=== PATIENT | female | born 1960 | race Caucasian/White ===

== ENCOUNTER 2020-01-12 02:06 | Inpatient (IN) | payer MEDICARE, MEDICAID ==
[~2020-01-12] VITALS: Ht 170.2 cm; Wt 90.0 kg
[2020-01-12] MEDS ORDERED: ASPI-1265 PO (02:53)
[2020-01-12] MEDS ORDERED: GLIP5TAB13 PO (02:53)
[2020-01-12] MEDS ORDERED: CYAN50008 PO (02:53)
[2020-01-12] MEDS ORDERED: ASCO-349 PO (02:53)
[2020-01-12] MEDS ORDERED: ALBU8.5H8 IH (02:53)
[2020-01-12] MEDS ORDERED: METF-950 PO (02:53)
[2020-01-12] MEDS ORDERED: LISI-600 PO (02:53)
[2020-01-12] MEDS ORDERED: SULF1TAB48 PO (02:53)
[2020-01-12] MEDS ORDERED: ATOR20TA PO (02:53)
[2020-01-12] MEDS ORDERED: ONDA4TAB6 PO (02:53)
[2020-01-12] MEDS ORDERED: NAPR-56 PO (02:53)
[2020-01-12] MEDS ORDERED: GABA-530 PO (02:53)
[2020-01-12] MEDS ORDERED: MECL-184 PO (02:53)
[2020-01-12] MEDS ORDERED: ACET-1059 PO (02:53)
--- NOTE | 2020-01-12 03:11 | NUR ---
BLADDER SCAN SHOWED 375 ML PRE-VOID. PT ATTEMPTED TO URINATE, VOIDED APPROX 300 ML. URINE DARK YELLOW AND HAS SEDIMENT
[2020-01-12] MEDS ORDERED: mag hydrox/Alum hydrox/simeth 30ml oral suspension PO PRN (03:55)
[2020-01-12] MEDS ORDERED: magnesium 4gm in 100ml NS 100 ML IV PRN (03:55)
[2020-01-12] MEDS ORDERED: HYDROcodone/acetaminophen 5mg/325mg tablet PO PRN (03:55)
[2020-01-12] MEDS ORDERED: HYDROcodone/acetaminophen 10/325mg tab PO PRN (03:55)
[2020-01-12] MEDS ORDERED: potassium Cl 20 mEq SR tablet PO PRN ×2 (03:55)
[2020-01-12] MEDS ORDERED: MESSAGE TO PHARMACY PO ONE (03:55)
[2020-01-12] MEDS ORDERED: ipratropium/albuterol 3ml nebule NEB PRN (03:55)
[2020-01-12] MEDS ORDERED: glucagon, human recombinant 1mg kit SUBCUT PRN (03:55)
[2020-01-12] MEDS ORDERED: dextrose 50%-water 50ml dispensing syringe IV PRN ×2 (03:55)
[2020-01-12] MEDS ORDERED: potassium CL 10mEq/100ml bag 100 ML IV PRN ×2 (03:55)
[2020-01-12] MEDS ORDERED: dextrose ORAL solution 15 GM/59 ML bottle PO PRN ×2 (03:55)
[2020-01-12] MEDS ORDERED: magnesium 2GM in 50ml NS 50 ML IV PRN (03:55)
[2020-01-12] MEDS ORDERED: magnesium hydroxide 30ml (MOM) UD suspension PO PRN (03:55)
[2020-01-12] MEDS ORDERED: acetaminophen 325mg tablet PO PRN ×2 (03:55)
[2020-01-12] MEDS ORDERED: ondansetron/PF 4mg/2ml inj IV PRN (03:55)
--- NOTE | 2020-01-12 04:15 | NUR ---
PT GIVEN FOOD UPON REQUEST
[2020-01-12] MEDS: normal saline 1000ml 1,000 ML IV SCH ×2 (06:41→13:55)
[2020-01-12] MEDS: meclizine 12.5mg tablet PO SCH ×3 (08:00→21:20)
[2020-01-12] MEDS: heparin, porcine 5000 units/ml vial SQ SCH ×2 (08:00→19:51)
[2020-01-12] MEDS: ondansetron 4mg rapidly disintigrating tab PO SCH (08:00)
[2020-01-12] MEDS: K and/or MAG REPLACEMENT MC SCH ×2 (08:00→20:00)
[2020-01-12] MEDS: gabapentin 300mg capsule PO SCH ×2 (09:01→16:57)
[2020-01-12] MEDS: aspirin 81mg tab.chew PO SCH (09:01)
[2020-01-12] MEDS: ascorbic acid 500mg tablet PO SCH ×2 (09:01→19:50)
[2020-01-12] MEDS: clindamycin 600mg/D5W 50ml 50 ML IV SCH ×3 (09:03→19:49)
[2020-01-12] MEDS: lisinopril 20mg tablet PO SCH (09:04)
[2020-01-12 09:07] LABS: BASOPHILS # (AUTO) 0.1 X10'3 (0-0.2); BASOPHILS % (AUTO) 0.9 % (0-1); EOSINOPHILS # (AUTO) 0.3 X10'3 (0-0.9); EOSINOPHILS % (AUTO) 3.6 % (0-6); HEMATOCRIT 39.3 % (35.0-45.0); HEMOGLOBIN 13.7 g/dl (12.0-16.0); LYMPHOCYTES # (AUTO) 2.5 X10'3 (1.1-4.8); LYMPHOCYTES % (AUTO) 29.1 % (21-51); MEAN CORPUSCULAR HEMOGLOBIN 29.5 PG (27.0-31.0); MEAN CORPUSCULAR HGB CONC 34.8 g/dL (33.0-36.5); MEAN CORPUSCULAR VOLUME 84.7 FL (78-98); MEAN PLATELET VOLUME 9.4 FL (7.4-10.4); MONOCYTES # (AUTO) 0.7 X10'3 (0-0.9); NEUTROPHILS # (AUTO) 5.1 X10'3 (1.8-7.7); NEUTROPHILS % (AUTO) 58.4 % (42-75); PLATELET COUNT 125 X10'3 (140-440); RED BLOOD COUNT 4.64 X10'6 (4.20-5.60); RED CELL DISTRIBUTION WIDTH 14.7 % (11.5-14.5); WHITE BLOOD COUNT 8.7 X10'3 (4.5-11.0)
[2020-01-12 09:30] LABS: HEMOGLOBIN A1C 7.5 % (4.5-6.2)
[2020-01-12 09:34] LABS: ALANINE AMINOTRANSFERASE 17 U/L (12-78); ALBUMIN 2.8 G/DL (3.4-5.0); ALBUMIN/GLOBULIN RATIO 0.7 (1.1-1.5); ALKALINE PHOSPHATASE 88 IU/L (46-116); ANION GAP 13 (8-16); ASPARTATE AMINO TRANSFERASE 27 U/L (10-37); BILIRUBIN,TOTAL 0.2 MG/DL (0.1-1.0); BLOOD UREA NITROGEN 41 MG/DL (7-18); BUN/CREATININE RATIO 14.1 (6.6-38.0); CALCIUM 8.3 MG/DL (8.5-10.1); CHLORIDE 99 MMOL/L (99-107); CREATININE 2.91 MG/DL (0.40-0.90); GLUCOSE 153 MG/DL (70-104); SODIUM 136 MMOL/L (135-145); TOTAL CARBON DIOXIDE 23.7 MMOL/L (24-32); TOTAL PROTEIN 6.7 G/DL (6.4-8.2); eGFR 17 ML/MIN
[2020-01-12 09:36] LABS: POTASSIUM 3.8 MMOL/L (3.5-5.1)
--- NOTE | 2020-01-12 12:42 | NUR ---
Patient in room ED 2. I have received report from ED nurse, and had the opportunity to ask questions and assume patient care.
--- NOTE | 2020-01-12 12:48 | NUR ---
PT HEPARIN SENT WITH THE PT ,INFORMED THE NURSE TIEN THAT PT HEPARIN WAS NOT GIVEN AND VIT B12 I WAS BUSY WITH OTHER PT ,TERESO CHOI STATED THAT SHE WILL GIVE IT TO THE PT .SENT WITH THE PT WITH ANSON WILLAMS.
[2020-01-12 13:30] VITALS: BP 98/72
[2020-01-12] MEDS: acetaminophen w/codeine (30MG) #3 tablet PO PRN ×2 (13:38→21:23)
[2020-01-12] MEDS: cyanocobalamin 500mcg tablet PO SCH (13:52)
--- NOTE | 2020-01-12 15:54 | NUR ---
Pt Blood sugar 202, lunch provided around 1500. Pt asymptomatic. will initiate coverage at dinner time.
[2020-01-12 18:00] VITALS: BP 118/68
--- NOTE | 2020-01-12 18:10 | NUR ---
Patient in room [facility]. I have received report from Sue CHOI and had the opportunity to ask questions and assume patient care.
--- NOTE | 2020-01-12 18:34 | NUR ---
Problems reprioritized. Patient report given, questions answered & plan of care reviewed with STEPH Serna.
[2020-01-12] MEDS: insulin Lispro (HumaLOG) vial - multi-dose SQ SCH (18:44)
[2020-01-12] MEDS: lactobacillus rhamnosus 10,000 MMU CELLS/CAPSULE PO SCH (19:50)
[2020-01-12] MEDS: atorvastatin 20mg tablet PO SCH (21:20)
[2020-01-12] MEDS: insulin glargine (Lantus) pen - multi-dose SQ SCH (21:21)
[2020-01-13 01:00] VITALS: BP 122/74
[2020-01-13] MEDS: gabapentin 300mg capsule PO SCH ×3 (01:05→16:59)
[2020-01-13] MEDS: clindamycin 600mg/D5W 50ml 50 ML IV SCH ×4 (01:05→20:33)
[2020-01-13] MEDS: normal saline 1000ml 1,000 ML IV SCH ×3 (01:05→20:35)
[2020-01-13 06:15] LABS: BASOPHILS # (AUTO) 0.1 X10'3 (0-0.2); BASOPHILS % (AUTO) 0.9 % (0-1); EOSINOPHILS # (AUTO) 0.2 X10'3 (0-0.9); EOSINOPHILS % (AUTO) 2.9 % (0-6); HEMATOCRIT 32.5 % (35.0-45.0); HEMOGLOBIN 11.3 g/dl (12.0-16.0); LYMPHOCYTES # (AUTO) 1.4 X10'3 (1.1-4.8); LYMPHOCYTES % (AUTO) 23.6 % (21-51); MEAN CORPUSCULAR HEMOGLOBIN 29.5 PG (27.0-31.0); MEAN CORPUSCULAR HGB CONC 34.8 g/dL (33.0-36.5); MEAN CORPUSCULAR VOLUME 84.7 FL (78-98); MEAN PLATELET VOLUME 9.7 FL (7.4-10.4); MONOCYTES # (AUTO) 0.5 X10'3 (0-0.9); MONOCYTES % (AUTO) 9.1 % (2-12); NEUTROPHILS # (AUTO) 3.7 X10'3 (1.8-7.7); NEUTROPHILS % (AUTO) 63.5 % (42-75); PLATELET COUNT 113 X10'3 (140-440); RED BLOOD COUNT 3.84 X10'6 (4.20-5.60); RED CELL DISTRIBUTION WIDTH 14.6 % (11.5-14.5); WHITE BLOOD COUNT 5.9 X10'3 (4.5-11.0)
[2020-01-13 06:16] LABS: ALANINE AMINOTRANSFERASE 16 U/L (12-78); ALBUMIN 2.5 G/DL (3.4-5.0); ALBUMIN/GLOBULIN RATIO 0.7 (1.1-1.5); ALKALINE PHOSPHATASE 86 IU/L (46-116); ANION GAP 9 (8-16); ASPARTATE AMINO TRANSFERASE 16 U/L (10-37); BILIRUBIN,TOTAL 0.2 MG/DL (0.1-1.0); BLOOD UREA NITROGEN 40 MG/DL (7-18); BUN/CREATININE RATIO 25.5 (6.6-38.0); CALCIUM 8.1 MG/DL (8.5-10.1); CHLORIDE 105 MMOL/L (99-107); CREATININE 1.57 MG/DL (0.40-0.90); GLUCOSE 182 MG/DL (70-104); MAGNESIUM 1.4 MG/DL (1.5-2.4); POTASSIUM 4.3 MMOL/L (3.5-5.1); SODIUM 138 MMOL/L (135-145); TOTAL CARBON DIOXIDE 24.3 MMOL/L (24-32); eGFR 34 ML/MIN
--- NOTE | 2020-01-13 06:17 | NUR ---
Problems reprioritized. Patient report given, questions answered & plan of care reviewed with Sue CHOI.
--- NOTE | 2020-01-13 06:22 | NUR ---
Patient in room [facility] 348. I have received report from STEPH Serna and had the opportunity to ask questions and assume patient care.
[2020-01-13] MEDS: aspirin 81mg tab.chew PO SCH (07:47)
[2020-01-13] MEDS: ascorbic acid 500mg tablet PO SCH ×2 (07:48→20:33)
[2020-01-13] MEDS: lactobacillus rhamnosus 10,000 MMU CELLS/CAPSULE PO SCH ×2 (07:48→20:33)
[2020-01-13] MEDS: lisinopril 20mg tablet PO SCH (07:48)
[2020-01-13] MEDS: cyanocobalamin 500mcg tablet PO SCH (07:50)
[2020-01-13] MEDS: ondansetron 4mg rapidly disintigrating tab PO SCH (07:55)
[2020-01-13] MEDS: heparin, porcine 5000 units/ml vial SQ SCH ×2 (07:55→20:34)
[2020-01-13] MEDS: meclizine 12.5mg tablet PO SCH ×3 (07:55→20:33)
[2020-01-13 08:00] VITALS: BP 126/57
[2020-01-13] MEDS: K and/or MAG REPLACEMENT MC SCH ×2 (08:00→20:00)
[2020-01-13] MEDS: insulin Lispro (HumaLOG) vial - multi-dose SQ SCH ×3 (08:09→19:22)
[2020-01-13 11:00] VITALS: BP 122/59
[2020-01-13] MEDS: magnesium Cl slow-release 64mg tablet PO PRN ×2 (13:47→20:33)
[2020-01-13] MEDS: acetaminophen w/codeine (30MG) #3 tablet PO PRN (14:55)
--- NOTE | 2020-01-13 15:04 | NUR ---
Pt with A1c 7.5%. Attempted visit with pt at bedside however pt sleeping. Written DM education and RD contact information left at patient's bedside. Pt currently on a renal heart healthy CHO controlled diet documented with 75-100% PO intake. Will remain available. Addendum: 01/13/20 at [address] Amended: Links added.
--- NOTE | 2020-01-13 17:52 | NUR ---
Pt unable to do MRI of Left elbow. informed. PAGER ID: [phone] MESSAGE: [facility] Med/surg [id number]. Pt: Spring, Rm: 348-A Lt arm MRI not taken. Patient unable to tolerate, too tight in the scanner. thanks
--- NOTE | 2020-01-13 18:38 | NUR ---
Problems reprioritized. Patient report given, questions answered & plan of care reviewed with STEPH Reed.
--- NOTE | 2020-01-13 18:40 | NUR ---
Patient in room [facility] 348. I have received report from ETRESO CHOI and had the opportunity to ask questions and assume patient care.
[2020-01-13 20:00] VITALS: BP 147/58
[2020-01-13] MEDS: atorvastatin 20mg tablet PO SCH (20:33)
[2020-01-13] MEDS: insulin glargine (Lantus) pen - multi-dose SQ SCH (21:51)
[2020-01-14] VITALS: BP 155/68
[2020-01-14] MEDS: gabapentin 300mg capsule PO SCH ×2 (00:37→07:34)
[2020-01-14] MEDS: acetaminophen w/codeine (30MG) #3 tablet PO PRN (00:38)
[2020-01-14] MEDS: clindamycin 600mg/D5W 50ml 50 ML IV SCH ×2 (02:46→07:32)
[2020-01-14 05:50] LABS: BASOPHILS # (AUTO) 0.1 X10'3 (0-0.2); BASOPHILS % (AUTO) 1.3 % (0-1); EOSINOPHILS # (AUTO) 0.2 X10'3 (0-0.9); EOSINOPHILS % (AUTO) 3.6 % (0-6); HEMATOCRIT 33.8 % (35.0-45.0); HEMOGLOBIN 11.8 g/dl (12.0-16.0); LYMPHOCYTES # (AUTO) 1.7 X10'3 (1.1-4.8); LYMPHOCYTES % (AUTO) 31.8 % (21-51); MEAN CORPUSCULAR HEMOGLOBIN 29.5 PG (27.0-31.0); MEAN CORPUSCULAR HGB CONC 34.8 g/dL (33.0-36.5); MEAN CORPUSCULAR VOLUME 84.9 FL (78-98); MEAN PLATELET VOLUME 9.5 FL (7.4-10.4); MONOCYTES # (AUTO) 0.5 X10'3 (0-0.9); MONOCYTES % (AUTO) 10.2 % (2-12); NEUTROPHILS # (AUTO) 2.8 X10'3 (1.8-7.7); NEUTROPHILS % (AUTO) 53.1 % (42-75); PLATELET COUNT 123 X10'3 (140-440); RED BLOOD COUNT 3.98 X10'6 (4.20-5.60); RED CELL DISTRIBUTION WIDTH 14.1 % (11.5-14.5); WHITE BLOOD COUNT 5.3 X10'3 (4.5-11.0)
[2020-01-14 05:52] LABS: ALANINE AMINOTRANSFERASE 18 U/L (12-78); ALBUMIN 2.6 G/DL (3.4-5.0); ALBUMIN/GLOBULIN RATIO 0.7 (1.1-1.5); ALKALINE PHOSPHATASE 88 IU/L (46-116); ANION GAP 6 (8-16); ASPARTATE AMINO TRANSFERASE 18 U/L (10-37); BILIRUBIN,TOTAL 0.2 MG/DL (0.1-1.0); BLOOD UREA NITROGEN 22 MG/DL (7-18); BUN/CREATININE RATIO 26.2 (6.6-38.0); CALCIUM 8.5 MG/DL (8.5-10.1); CHLORIDE 109 MMOL/L (99-107); CREATININE 0.84 MG/DL (0.40-0.90); GLUCOSE 155 MG/DL (70-104); MAGNESIUM 1.3 MG/DL (1.5-2.4); POTASSIUM 4.6 MMOL/L (3.5-5.1); SODIUM 139 MMOL/L (135-145); TOTAL CARBON DIOXIDE 23.8 MMOL/L (24-32); TOTAL PROTEIN 6.5 G/DL (6.4-8.2); eGFR 70 ML/MIN
[2020-01-14] MEDS: normal saline 1000ml 1,000 ML IV SCH (05:55)
--- NOTE | 2020-01-14 06:30 | NUR ---
Problems reprioritized. Patient report given, questions answered & plan of care reviewed with LAURA CHOI.
--- NOTE | 2020-01-14 06:33 | NUR ---
Patient in room [facility] 348. I have received report from JULIOCESAR GANDARA RN and had the opportunity to ask questions and assume patient care.
[2020-01-14 07:17] VITALS: BP 168/88
[2020-01-14] MEDS: aspirin 81mg tab.chew PO SCH (07:33)
[2020-01-14] MEDS: meclizine 12.5mg tablet PO SCH ×2 (07:33→13:36)
[2020-01-14] MEDS: ascorbic acid 500mg tablet PO SCH (07:34)
[2020-01-14] MEDS: lactobacillus rhamnosus 10,000 MMU CELLS/CAPSULE PO SCH (07:34)
[2020-01-14] MEDS: lisinopril 20mg tablet PO SCH (07:34)
[2020-01-14] MEDS: heparin, porcine 5000 units/ml vial SQ SCH (07:35)
[2020-01-14] MEDS: ondansetron 4mg rapidly disintigrating tab PO SCH (07:36)
[2020-01-14] MEDS: magnesium Cl slow-release 64mg tablet PO PRN (08:08)
[2020-01-14] MEDS: cyanocobalamin 500mcg tablet PO SCH (08:09)
[2020-01-14] MEDS: K and/or MAG REPLACEMENT MC SCH (08:10)
[2020-01-14] MEDS: insulin Lispro (HumaLOG) vial - multi-dose SQ SCH ×2 (10:32→13:35)
[2020-01-14] MEDS ORDERED: CLIN150C2 PO (11:12)
[2020-01-14] MEDS ORDERED: LACT1CAP26 PO (11:12)
[2020-01-14] MEDS ORDERED: LISI-600 PO (11:12)
[2020-01-14 11:18] VITALS: BP 155/95
--- NOTE | 2020-01-14 14:30 | NUR ---
CALLED PT'S NEW MEDS IN TO [facility] IN [facility], PICKED UP HER MEDS FROM HOME THAT WERE STORED IN OUR PHARMACY, AND TECH WHEELED HER DOWNSTAIRS.
== END 2020-01-14 13:55 | disposition home or self-care (01) | DRG 299 ==
LOC: ER 02:07 → ED HOLD 03:51 → SUR 3N 13:05
PROVIDERS: ADMIT Family Medicine; ATTEND Family Medicine
DX: I80.8 Phlebitis and thrombophlebitis of other sites (principal); N17.0 Acute kidney failure with tubular necrosis; L03.114 Cellulitis of left upper limb; E11.9 Type 2 diabetes mellitus without complications; E78.00 Pure hypercholesterolemia, unspecified; F17.210 Nicotine dependence, cigarettes, uncomplicated; E78.5 Hyperlipidemia, unspecified; I95.9 Hypotension, unspecified; E86.0 Dehydration; I10 Essential (primary) hypertension; J44.9 Chronic obstructive pulmonary disease, unspecified; G89.29 Other chronic pain; M54.9 Dorsalgia, unspecified; Z79.84 Long term (current) use of oral hypoglycemic drugs; Z89.512 Acquired absence of left leg below knee; Z88.0 Allergy status to penicillin; Z88.5 Allergy status to narcotic agent; Z79.899 Other long term (current) drug therapy; Z80.9 Family history of malignant neoplasm, unspecified; Z82.49 Family history of ischemic heart disease and other diseases of the circulatory system; Z71.6 Tobacco abuse counseling
CPT/HCPCS: 36415; 73200; 80053; 82948; 83036; 83735; 84145; 84443; 85025; 87081; 93971; 94760; 96372; 97161; 97530; 99285; G0378; J1644; J1815; J3490; J7030; J8597

== ENCOUNTER 2023-04-22 13:48 | Inpatient (IN) | payer MEDICARE, MEDICAID ==
[~2023-04-22] VITALS: Ht 170.2 cm; Wt 84.0 kg
[~2023-04-22 13:48] MED LIST: ACET-1059 PO; ALBU8.5H17 IH; ASCO-349 PO; ASPI-1265 PO; ATOR20TA PO; CYAN50009 PO; GABA-530 PO; GLIP5TAB23 PO; LACT1CAP26 PO; LISI20TA28 PO; MECL-231 PO; METF-1203 PO; ONDA4TAB6 PO
[2023-04-22 14:57] LABS: BASOPHILS % (AUTO) 0.1 % (0-1); EOSINOPHILS % (AUTO) 0 % (0-6); HEMATOCRIT 24.7 % (35.0-45.0); HEMOGLOBIN 8.2 g/dl (12.0-16.0); LYMPHOCYTES # (AUTO) 0.2 X10'3 (1.1-4.8); MEAN CORPUSCULAR HEMOGLOBIN 28.4 PG (27.0-31.0); MEAN CORPUSCULAR HGB CONC 33.2 g/dL (33.0-36.5); MEAN CORPUSCULAR VOLUME 85.5 FL (78-98); MEAN PLATELET VOLUME 8.8 FL (7.4-10.4); MONOCYTES # (AUTO) 0.1 X10'3 (0-0.9); MONOCYTES % (AUTO) 1.3 % (2-12); NEUTROPHILS # (AUTO) 6.3 X10'3 (1.8-7.7); NEUTROPHILS % (AUTO) 95.6 % (42-75); PLATELET COUNT 95 X10'3 (140-440); RED BLOOD COUNT 2.89 X10'6 (4.20-5.60); WHITE BLOOD COUNT 6.6 X10'3 (4.5-11.0)
[2023-04-22] MEDS ORDERED: acetaminophen w/codeine (60MG) #4 tablet PO ONE (15:10)
[2023-04-22 15:23] LABS: ALANINE AMINOTRANSFERASE 13 U/L (12-78); ALBUMIN 2.2 G/DL (3.4-5.0); ALBUMIN/GLOBULIN RATIO 0.5 (1.1-1.5); ALKALINE PHOSPHATASE 92 IU/L (46-116); ANION GAP 10 (8-16); ASPARTATE AMINO TRANSFERASE 21 U/L (10-37); BILIRUBIN,TOTAL 0.3 MG/DL (0.1-1.0); BLOOD UREA NITROGEN 43 MG/DL (7-18); BUN/CREATININE RATIO 18.5 (10.0-20.0); CALCIUM 8.4 MG/DL (8.5-10.1); CHLORIDE 104 MMOL/L (99-107); CREATININE 2.33 MG/DL (0.40-0.90); POTASSIUM 5.5 MMOL/L (3.5-5.1); SODIUM 136 MMOL/L (135-145); TOTAL CARBON DIOXIDE 21.7 MMOL/L (24-32); TOTAL PROTEIN 6.9 G/DL (6.4-8.2); eCRCL 25 ML/MIN; eGFR 21 ML/MIN
[2023-04-22 15:31] LABS: GLUCOSE 426 MG/DL (70-104)
[2023-04-22] MEDS: furosemide 10 MG/1 ML 10ml inj IV ONE ×2 (15:37→18:48)
[2023-04-22] MEDS: cloNIDine 0.1 mg tablet PO ONE (15:37)
[2023-04-22] MEDS: gabapentin 300mg capsule PO ONE (15:37)
[2023-04-22] MEDS: CefTRIAXone/D5W-Rocephin 1gm 50 ML IV ONE (15:37)
[2023-04-22] MEDS: aspirin 325mg tablet, delayed-release (Ecotrin) PO ONE (15:46)
[2023-04-22] MEDS: insulin regular, human 10 units/0.1 ml syringe IV ONE (15:46)
[2023-04-22] MEDS: normal saline 1000ml 1,000 ML IV ONE (16:00)
[2023-04-22 16:28] LABS: PRO BRAIN NATRIURETIC PEPTIDE > 30000 PG/ML (0-125)
[2023-04-22] MEDS: acetaminophen w/codeine (30MG) #3 tablet PO ONE (16:32)
[2023-04-22] MEDS ORDERED: heparin 10,000 units/1 ML INJ IV ONE ×3 (17:00→18:10)
[2023-04-22] MEDS ORDERED: heparin 10,000 units/1 ML INJ IV SCH (17:00)
[2023-04-22 17:23] LABS: APTT 29 SECONDS (22-32); PROTHROMBIN TIME 10.6 SECONDS (9.0-12.0)
[2023-04-22] MEDS: clopidogrel 300mg tablet PO ONE (17:31)
[2023-04-22] MEDS: metoprolol tartrate 50mg tablet PO ONE (17:33)
[2023-04-22] MEDS ORDERED: heparin 10,000 units/1 ML INJ IV PRN ×2 (18:05→18:10)
[2023-04-22] MEDS ORDERED: heparin 25,000 UNIT/250ml bag 250 ML IV PRN (18:10)
[2023-04-22] MEDS ORDERED: magnesium 4gm in 100ml NS 100 ML IV PRN (18:10)
[2023-04-22] MEDS ORDERED: magnesium hydroxide 30ml (MOM) UD suspension PO PRN (18:10)
[2023-04-22] MEDS ORDERED: glucagon, human recombinant 1mg kit SUBCUT PRN (18:10)
[2023-04-22] MEDS ORDERED: magnesium Cl slow-release 64mg tablet PO PRN (18:10)
[2023-04-22] MEDS ORDERED: potassium Cl 40MEQ/1/2NS 520ml 520 ML IV PRN (18:10)
[2023-04-22] MEDS ORDERED: dextrose 50%-water 50ml dispensing syringe IV PRN ×2 (18:10)
[2023-04-22] MEDS ORDERED: mag hydrox/Alum hydrox/simeth 30ml oral suspension PO PRN (18:10)
[2023-04-22] MEDS ORDERED: magnesium 2GM in 50ml NS 50 ML IV PRN (18:10)
[2023-04-22] MEDS ORDERED: potassium Cl 20 mEq SR tablet PO PRN ×2 (18:10)
[2023-04-22] MEDS ORDERED: DEXTROSE 15 GM of carb/4 tabs (each vial/BOTTLE has 4 tablets) PO PRN ×2 (18:10)
[2023-04-22] MEDS ORDERED: HYDROcodone/acetaminophen 5mg/325mg tablet PO PRN (18:10)
[2023-04-22] MEDS: heparin 10,000 units/1 ML INJ IV ONE (18:16)
[2023-04-22] MEDS: heparin 25,000 UNIT/250ml bag 250 ML IV PRN (18:18)
[2023-04-22] MEDS: MESSAGE TO PHARMACY PO ONE (18:38)
[2023-04-22] MEDS: docusate sod 100mg capsule PO SCH (20:00)
[2023-04-22] MEDS: K and/or MAG REPLACEMENT MC SCH (20:07)
[2023-04-22] MEDS: furosemide 10 MG/1 ML 10ml inj IV SCH (20:29)
[2023-04-22 21:14] VITALS: PULSE 71; RESP 18; O2SAT 98
[2023-04-22] MEDS: insulin glargine (Lantus) pen - multi-dose SQ SCH (21:38)
[2023-04-22] MEDS ORDERED: ACET-2 PO (22:28)
[2023-04-22] MEDS ORDERED: LISI1TAB49 PO (22:28)
[2023-04-22 23:28] VITALS: BP 129/90; PULSE 76; RESP 20; TEMP 98.1; O2SAT 97
[2023-04-22] MEDS ORDERED: acetaminophen w/codeine (60MG) #4 tablet PO PRN (23:40)
[2023-04-23] VITALS (11 sets, daily range): BP systolic 146–180; BP diastolic 64–98; PULSE 74–83; RESP 16–22; TEMP 97.7–98; O2SAT 94–100
[2023-04-23 01:17] LABS: BILIRUBIN,URINE NEGATIVE (Neg); CLARITY,URINE SLIGHTLY CLOUDY (Clear); COLOR,URINE YELLOW (Yellow); GLUCOSE, URINE 250 mg/dl (Neg); KETONES,URINE NEGATIVE (Neg); LEUKOCYTE ESTERASE ,URINE SMALL (Neg); NITRITES, URINE NEGATIVE (Neg); OCCULT BLOOD,URINE MODERATE (Neg); PH,URINE 5.5 (4.8-8.0); PROTEIN,URINE 100 mg/dl (Neg); UROBILINOGEN,URINE 0.2 E.U/dL (0.2-1.0)
[2023-04-23] MEDS: ipratropium 0.5 MG/2.5ML nebule IH PRN (01:23)
[2023-04-23 01:41] LABS: PROTHROMBIN TIME 10.6 SECONDS (9.0-12.0)
[2023-04-23 01:42] LABS: UA COLLECTION TYPE NON-SPECIFIED
[2023-04-23 01:46] LABS: AMORPHOUS URATES 1+; BACTERIA,URINE 1+ /HPF (Neg); MUCUS STRANDS FEW /LPF (Neg); SQUAMOUS EPITHELIAL CELL,UR MODERATE /LPF (FEW); TRANSITIONAL EPI CELLS,URINE FEW /HPF; YEAST MANY /HPF (NEGATIVE)
[2023-04-23 04:44] LABS: ABG BASE EXCESS -4.6 mmol/L (-2.0-2.0); ABG HCO3 20.6 mmol/L (22.0-26.0); ABG PCO2 (T) 37.5 mmHg (32.0-45.0); ABG PH (T) 7.355 (7.350-7.450); ABG PO2 (T) 95.9 mmHg (75.0-100.0); ALLEN'S TEST POSITIVE; FCOHb 0.3 % (0.0-3.9); FMetHb 0.3 % (0.0-1.5); FO2Hb 96.4 % (94-97); PATIENT TEMPERATURE 36.7
[2023-04-23] MEDS: nitroGLYCERIN 0.1mg/hour patch TD SCH (08:15)
[2023-04-23 10:52] LABS: BASOPHILS % (AUTO) 0.2 % (0-1); EOSINOPHILS % (AUTO) 0 % (0-6); HEMATOCRIT 23.4 % (35.0-45.0); HEMOGLOBIN 7.7 g/dl (12.0-16.0); LYMPHOCYTES # (AUTO) 0.7 X10'3 (1.1-4.8); MEAN CORPUSCULAR HEMOGLOBIN 28.2 PG (27.0-31.0); MEAN CORPUSCULAR HGB CONC 33.1 g/dL (33.0-36.5); MEAN CORPUSCULAR VOLUME 85.4 FL (78-98); MEAN PLATELET VOLUME 9.3 FL (7.4-10.4); MONOCYTES # (AUTO) 0.4 X10'3 (0-0.9); MONOCYTES % (AUTO) 4.6 % (2-12); NEUTROPHILS # (AUTO) 7.9 X10'3 (1.8-7.7); NEUTROPHILS % (AUTO) 87.2 % (42-75); PLATELET COUNT 115 X10'3 (140-440); RED BLOOD COUNT 2.73 X10'6 (4.20-5.60); RED CELL DISTRIBUTION WIDTH 16.4 % (11.5-14.5)
[2023-04-23 10:53] LABS: HEMOGLOBIN A1C 5.6 % (4.5-6.2)
[2023-04-23] MEDS: aspirin 81mg tab.chew PO SCH (11:00)
[2023-04-23] MEDS: atorvastatin 20mg tablet PO SCH ×2 (11:01→20:18)
[2023-04-23] MEDS: lisinopril 10 MG tablet PO SCH (11:01)
[2023-04-23] MEDS: HYDROchlorothiazide 12.5mg capsule PO SCH (11:02)
[2023-04-23 11:06] LABS: ALANINE AMINOTRANSFERASE 14 U/L (12-78); ALBUMIN 2.3 G/DL (3.4-5.0); ALBUMIN/GLOBULIN RATIO 0.5 (1.1-1.5); ALKALINE PHOSPHATASE 78 IU/L (46-116); ANION GAP 13 (8-16); ASPARTATE AMINO TRANSFERASE 14 U/L (10-37); BILIRUBIN,TOTAL 0.2 MG/DL (0.1-1.0); BLOOD UREA NITROGEN 50 MG/DL (7-18); BUN/CREATININE RATIO 21.9 (10.0-20.0); CALCIUM 8.3 MG/DL (8.5-10.1); CHLORIDE 106 MMOL/L (99-107); CHOL/HDL RATIO 3.6 (0.00-4.99); CHOLESTEROL 208 MG/DL (0-200); CREATININE 2.28 MG/DL (0.40-0.90); GLUCOSE 167 MG/DL (70-104); HDL CHOLESTEROL 58 MG/DL (35-60); LDL CHOLESTEROL 122 MG/DL (50-100); PHOSPHORUS 5.4 MG/DL (2.3-4.5); SODIUM 139 MMOL/L (135-145); TOTAL CARBON DIOXIDE 20.2 MMOL/L (24-32); TOTAL PROTEIN 6.6 G/DL (6.4-8.2); TRIGLYCERIDES 177 MG/DL (20-135); eCRCL 25 ML/MIN; eGFR 22 ML/MIN
[2023-04-23] MEDS: amLODIPine 5mg tablet PO ONE (11:06)
[2023-04-23] MEDS ORDERED: metoprolol tartrate 1mg/ml inj IV PRN (14:05)
[2023-04-23] MEDS ORDERED: aminophylline 250mg/10ml inj. IV PRN (14:05)
[2023-04-23] MEDS ORDERED: nitroGLYCERIN 0.4mg SUBLingual tab SL PRN (14:05)
[2023-04-23] MEDS ORDERED: regadenoson 0.4mg/5ml syringe IV PRN (14:05)
[2023-04-23] MEDS: insulin Lispro (HumaLOG) vial - multi-dose SQ SCH (14:20)
[2023-04-23] MEDS: LORazepam 0.5 MG tablet PO ONE (14:35)
[2023-04-23] MEDS: metoprolol succinate 25mg (24-HOUR) SR. Tablet PO SCH (14:35)
[2023-04-23] MEDS: albuterol 2.5 MG/3 ML nebule NEB PRN (22:47)
[2023-04-24] VITALS (9 sets, daily range): BP systolic 100–166; BP diastolic 72–83; PULSE 74–87; RESP 16–20; TEMP 97.1–98.8; O2SAT 92–98
[2023-04-24] MEDS: atorvastatin 20mg tablet PO SCH (07:29)
[2023-04-24] MEDS: gabapentin 300mg capsule PO SCH (07:30)
[2023-04-24 13:12] LABS: BASOPHILS % (AUTO) 0.6 % (0-1); EOSINOPHILS # (AUTO) 0.1 X10'3 (0-0.9); MEAN CORPUSCULAR VOLUME 85.1 FL (78-98); RED BLOOD COUNT 2.36 X10'6 (4.20-5.60)
[2023-04-24 13:14] LABS: EOSINOPHILS % (AUTO) 1.7 % (0-6); LYMPHOCYTES # (AUTO) 0.8 X10'3 (1.1-4.8); LYMPHOCYTES % (AUTO) 17.1 % (21-51); MEAN CORPUSCULAR HEMOGLOBIN 27.9 PG (27.0-31.0); MEAN CORPUSCULAR HGB CONC 32.8 g/dL (33.0-36.5); MEAN PLATELET VOLUME 8.9 FL (7.4-10.4); MONOCYTES # (AUTO) 0.4 X10'3 (0-0.9); MONOCYTES % (AUTO) 7.2 % (2-12); NEUTROPHILS # (AUTO) 3.6 X10'3 (1.8-7.7); NEUTROPHILS % (AUTO) 73.4 % (42-75); PLATELET COUNT 108 X10'3 (140-440); WHITE BLOOD COUNT 4.9 X10'3 (4.5-11.0)
[2023-04-24 13:16] LABS: HEMOGLOBIN 6.6 g/dl (12.0-16.0)
[2023-04-24 13:23] LABS: APTT 26 SECONDS (22-32); IRON 19 UG/DL (49-151); PROTHROMBIN TIME 10.5 SECONDS (9.0-12.0)
[2023-04-24 13:36] LABS: ALANINE AMINOTRANSFERASE 13 U/L (12-78); ALBUMIN 2.1 G/DL (3.4-5.0); ALBUMIN/GLOBULIN RATIO 0.6 (1.1-1.5); ALKALINE PHOSPHATASE 65 IU/L (46-116); ANION GAP 10 (8-16); ASPARTATE AMINO TRANSFERASE 12 U/L (10-37); BILIRUBIN,TOTAL 0.2 MG/DL (0.1-1.0); BLOOD UREA NITROGEN 54 MG/DL (7-18); BUN/CREATININE RATIO 23.4 (10.0-20.0); CALCIUM 7.6 MG/DL (8.5-10.1); CHLORIDE 108 MMOL/L (99-107); CREATININE 2.31 MG/DL (0.40-0.90); FERRITIN 100 NG/ML (8-252); GLUCOSE 142 MG/DL (70-104); MAGNESIUM 1.8 MG/DL (1.5-2.4); POTASSIUM 4.4 MMOL/L (3.5-5.1); SODIUM 141 MMOL/L (135-145); TOTAL CARBON DIOXIDE 22.8 MMOL/L (24-32); TOTAL PROTEIN 5.6 G/DL (6.4-8.2); eCRCL 25 ML/MIN; eGFR 21 ML/MIN
[2023-04-24] MEDS ORDERED: metoprolol tartrate 1mg/ml inj IV PRN (14:10)
[2023-04-24] MEDS ORDERED: nitroGLYCERIN 0.4mg SUBLingual tab SL PRN (14:10)
[2023-04-24] MEDS ORDERED: aminophylline 250mg/10ml inj. IV PRN (14:10)
[2023-04-24] MEDS: furosemide 10 MG/1 ML 10ml inj IV SCH (15:53)
[2023-04-25] VITALS (21 sets, daily range): BP systolic 146–194; BP diastolic 42–82; PULSE 72–94; RESP 14–20; TEMP 97.5–98.4; O2SAT 93–100
[2023-04-25] MEDS: acetaminophen w/codeine (30MG) #3 tablet PO PRN (03:20)
[2023-04-25 06:56] LABS: APTT 25 SECONDS (22-32); PROTHROMBIN TIME 10.3 SECONDS (9.0-12.0)
[2023-04-25 06:59] LABS: ABSOLUTE RETICS # 47900 /CUMM (23000-93000); BASOPHILS # (AUTO) 0.1 X10'3 (0-0.2); BASOPHILS % (AUTO) 1.2 % (0-1); EOSINOPHILS # (AUTO) 0.1 X10'3 (0-0.9); EOSINOPHILS % (AUTO) 2.3 % (0-6); HEMATOCRIT 22.1 % (35.0-45.0); HEMOGLOBIN 7.4 g/dl (12.0-16.0); LYMPHOCYTES # (AUTO) 1.1 X10'3 (1.1-4.8); LYMPHOCYTES % (AUTO) 22.4 % (21-51); MEAN CORPUSCULAR HEMOGLOBIN 28.2 PG (27.0-31.0); MEAN CORPUSCULAR HGB CONC 33.4 g/dL (33.0-36.5); MEAN CORPUSCULAR VOLUME 84.2 FL (78-98); MEAN PLATELET VOLUME 8.6 FL (7.4-10.4); MONOCYTES # (AUTO) 0.3 X10'3 (0-0.9); NEUTROPHILS # (AUTO) 3.3 X10'3 (1.8-7.7); NEUTROPHILS % (AUTO) 67.1 % (42-75); PLATELET COUNT 124 X10'3 (140-440); RED BLOOD COUNT 2.62 X10'6 (4.20-5.60); RETICULOCYTE % (AUTO) 1.8 % (0.5-1.5); WHITE BLOOD COUNT 4.9 X10'3 (4.5-11.0)
[2023-04-25 07:13] LABS: ALANINE AMINOTRANSFERASE 14 U/L (12-78); ALBUMIN 2.2 G/DL (3.4-5.0); ALBUMIN/GLOBULIN RATIO 0.6 (1.1-1.5); ALKALINE PHOSPHATASE 72 IU/L (46-116); ANION GAP 10 (8-16); ASPARTATE AMINO TRANSFERASE 13 U/L (10-37); BILIRUBIN,TOTAL 0.2 MG/DL (0.1-1.0); BLOOD UREA NITROGEN 52 MG/DL (7-18); BUN/CREATININE RATIO 22.4 (10.0-20.0); CALCIUM 8.1 MG/DL (8.5-10.1); CHLORIDE 106 MMOL/L (99-107); CREATININE 2.32 MG/DL (0.40-0.90); GLUCOSE 161 MG/DL (70-104); LACTATE DEHYDROGENASE 201 U/L (81-234); MAGNESIUM 1.6 MG/DL (1.5-2.4); PHOSPHORUS 4.9 MG/DL (2.3-4.5); POTASSIUM 4.2 MMOL/L (3.5-5.1); SODIUM 140 MMOL/L (135-145); TOTAL CARBON DIOXIDE 24.1 MMOL/L (24-32); TOTAL PROTEIN 6.1 G/DL (6.4-8.2); eCRCL 25 ML/MIN; eGFR 21 ML/MIN
[2023-04-25] MEDS ORDERED: losartan 50mg tablet PO SCH (08:00)
[2023-04-25] MEDS: regadenoson 0.4mg/5ml syringe IV PRN (09:15)
[2023-04-25] MEDS: labetalol 100mg tablet PO SCH (10:05)
[2023-04-25] MEDS: HYDROchlorothiazide 25mg tablet PO SCH (10:06)
[2023-04-25] MEDS: ondansetron/PF 4mg/2ml inj IV PRN (10:52)
[2023-04-25] MEDS ORDERED: FURO20TA4 PO (11:53)
[2023-04-25] MEDS ORDERED: LOSA50TA64 PO (11:53)
[2023-04-25] MEDS ORDERED: ASPI-1265 PO (19:45)
[2023-04-25] MEDS ORDERED: ATOR20TA66 PO (19:45)
[2023-04-25] MEDS ORDERED: FURO-150 PO (19:45)
[2023-04-25] MEDS ORDERED: HYDR25TA4 PO (19:45)
[2023-04-25] MEDS ORDERED: CLOP-32 PO (19:45)
[2023-04-26] VITALS (7 sets, daily range): BP systolic 155–158; BP diastolic 58–68; PULSE 71–84; RESP 18–19; TEMP 97.7; O2SAT 90–95
[2023-04-26 00:56] LABS: OCCULT BLOOD STOOL NEGATIVE (Neg)
[2023-04-26 08:57] LABS: BASOPHILS % (AUTO) 0.7 % (0-1); EOSINOPHILS # (AUTO) 0.2 X10'3 (0-0.9); HEMATOCRIT 22.4 % (35.0-45.0); HEMOGLOBIN 7.5 g/dl (12.0-16.0); LYMPHOCYTES # (AUTO) 1.5 X10'3 (1.1-4.8); LYMPHOCYTES % (AUTO) 23.6 % (21-51); MEAN CORPUSCULAR HEMOGLOBIN 27.9 PG (27.0-31.0); MEAN CORPUSCULAR HGB CONC 33.4 g/dL (33.0-36.5); MEAN CORPUSCULAR VOLUME 83.7 FL (78-98); MEAN PLATELET VOLUME 8.7 FL (7.4-10.4); MONOCYTES # (AUTO) 0.4 X10'3 (0-0.9); MONOCYTES % (AUTO) 6.7 % (2-12); NEUTROPHILS # (AUTO) 4.1 X10'3 (1.8-7.7); PLATELET COUNT 144 X10'3 (140-440); RED BLOOD COUNT 2.67 X10'6 (4.20-5.60); RED CELL DISTRIBUTION WIDTH 15.9 % (11.5-14.5); WHITE BLOOD COUNT 6.2 X10'3 (4.5-11.0)
[2023-04-26 09:05] LABS: PROTHROMBIN TIME 10.8 SECONDS (9.0-12.0)
[2023-04-26 09:17] LABS: ALANINE AMINOTRANSFERASE 9 U/L (12-78); ALBUMIN 2.1 G/DL (3.4-5.0); ALBUMIN/GLOBULIN RATIO 0.6 (1.1-1.5); ALKALINE PHOSPHATASE 65 IU/L (46-116); ANION GAP 9 (8-16); ASPARTATE AMINO TRANSFERASE 13 U/L (10-37); BILIRUBIN,TOTAL 0.2 MG/DL (0.1-1.0); BLOOD UREA NITROGEN 53 MG/DL (7-18); BUN/CREATININE RATIO 21.5 (10.0-20.0); CALCIUM 7.9 MG/DL (8.5-10.1); CHLORIDE 106 MMOL/L (99-107); CREATININE 2.47 MG/DL (0.40-0.90); GLUCOSE 171 MG/DL (70-104); MAGNESIUM 1.7 MG/DL (1.5-2.4); PHOSPHORUS 5.2 MG/DL (2.3-4.5); SODIUM 140 MMOL/L (135-145); TOTAL CARBON DIOXIDE 25.4 MMOL/L (24-32); TOTAL PROTEIN 5.8 G/DL (6.4-8.2); eCRCL 23 ML/MIN; eGFR 20 ML/MIN
[2023-04-26] MEDS: losartan 50mg tablet PO SCH (10:49)
== END 2023-04-26 12:40 | disposition home or self-care (01) | DRG 280 ==
LOC: ER 13:48 → ED HOLD 18:20 → PCU 3S 23:20
PROVIDERS: ADMIT Internal Medicine; ATTEND Internal Medicine
PROC: 4A02XM4 Measurement of Cardiac Total Activity, External Approach (ICD-10-PCS; principal; 2023-04-25)
PROC: 3E073KZ Introduction of Other Diagnostic Substance into Coronary Artery, Percutaneous Approach (ICD-10-PCS; 2023-04-25)
DX: I13.0 Hypertensive heart and chronic kidney disease with heart failure and stage 1 through stage 4 chronic kidney disease, or unspecified chronic kidney disease (principal); I50.23 Acute on chronic systolic (congestive) heart failure; I21.A1 Myocardial infarction type 2; N17.0 Acute kidney failure with tubular necrosis; J96.01 Acute respiratory failure with hypoxia; N18.4 Chronic kidney disease, stage 4 (severe); I42.9 Cardiomyopathy, unspecified; G47.30 Sleep apnea, unspecified; E11.65 Type 2 diabetes mellitus with hyperglycemia; E11.22 Type 2 diabetes mellitus with diabetic chronic kidney disease; D69.6 Thrombocytopenia, unspecified; E78.00 Pure hypercholesterolemia, unspecified; E87.5 Hyperkalemia; M54.9 Dorsalgia, unspecified; D64.9 Anemia, unspecified; E11.51 Type 2 diabetes mellitus with diabetic peripheral angiopathy without gangrene; Z20.822 Contact with and (suspected) exposure to COVID-19; G89.4 Chronic pain syndrome; J44.9 Chronic obstructive pulmonary disease, unspecified; Z88.5 Allergy status to narcotic agent; Z88.0 Allergy status to penicillin; Z88.2 Allergy status to sulfonamides; Z88.8 Allergy status to other drugs, medicaments and biological substances; Z79.82 Long term (current) use of aspirin; Z79.84 Long term (current) use of oral hypoglycemic drugs; Z79.899 Other long term (current) drug therapy; Z90.49 Acquired absence of other specified parts of digestive tract; Z87.891 Personal history of nicotine dependence; Z89.512 Acquired absence of left leg below knee
CPT/HCPCS: 36415; 36600; 71045; 78452; 80053; 80061; 81001; 82272; 82728; 82803; 82948; 83036; 83540; 83605; 83615; 83735; 83880; 84100; 84145; 84466; 84484; 85018; 85025; 85045; 85610; 85730; 86885; 86900; 86901; 86920; 87040; 87081; 87811; 92508; 92616; 93005; 93017; 93306; 94640; 94760; 99285; A6449; A9500; G0378; J0696; J1644; J1815; J1940; J2405; J2785; J7030; J7040

== ENCOUNTER 2024-02-15 05:29 | Inpatient (IN) | payer MEDICARE, MEDICAID ==
[~2024-02-15] VITALS: Ht 170.2 cm; Wt 81.8 kg
[~2024-02-15 05:29] MED LIST changes: -ACET-1059 PO; +ACET-2 PO; -ASCO-349 PO; -ATOR20TA PO; +ATOR20TA66 PO; +CLOP-32 PO; -CYAN50009 PO; +FURO-150 PO; -GLIP5TAB23 PO; +HYDR25TA4 PO; -LACT1CAP26 PO; -LISI20TA28 PO; +LOSA50TA64 PO; -MECL-231 PO; -METF-1203 PO; -ONDA4TAB6 PO
[2024-02-15 08:00] LABS: BILIRUBIN,URINE NEGATIVE (Neg); CLARITY,URINE CLOUDY (Clear); COLOR,URINE YELLOW (Yellow); GLUCOSE, URINE 250 mg/dl (Neg); KETONES,URINE NEGATIVE (Neg); LEUKOCYTE ESTERASE ,URINE MODERATE (Neg); NITRITES, URINE NEGATIVE (Neg); OCCULT BLOOD,URINE MODERATE (Neg); PH,URINE 6.5 (4.8-8.0); PROTEIN,URINE >=300 mg/dl (Neg); UROBILINOGEN,URINE 0.2 E.U/dL (0.2-1.0)
[2024-02-15 08:11] LABS: UA COLLECTION TYPE NON-SPECIFIED
[2024-02-15] MEDS: ondansetron/PF 4mg/2ml inj IV ONE (08:12)
[2024-02-15] MEDS: HYDROmorphone inj. 0.5 MG/0.5 ML DISP.SYRIN IV ONE ×2 (08:12→14:43)
[2024-02-15 08:14] LABS: BASOPHILS % (AUTO) 0.7 % (0-1); EOSINOPHILS # (AUTO) 0.2 X10'3 (0-0.9); EOSINOPHILS % (AUTO) 3.2 % (0-6); HEMATOCRIT 30.1 % (35.0-45.0); HEMOGLOBIN 9.9 g/dl (12.0-16.0); LYMPHOCYTES % (AUTO) 16.7 % (21-51); MEAN CORPUSCULAR HEMOGLOBIN 29.5 PG (27.0-31.0); MEAN CORPUSCULAR HGB CONC 32.8 g/dL (33.0-36.5); MEAN CORPUSCULAR VOLUME 90.1 FL (78-98); MEAN PLATELET VOLUME 7.7 FL (7.4-10.4); MONOCYTES # (AUTO) 0.6 X10'3 (0-0.9); MONOCYTES % (AUTO) 9.3 % (2-12); NEUTROPHILS # (AUTO) 4.2 X10'3 (1.8-7.7); NEUTROPHILS % (AUTO) 70.1 % (42-75); PLATELET COUNT 128 X10'3 (140-440); RED BLOOD COUNT 3.34 X10'6 (4.20-5.60); RED CELL DISTRIBUTION WIDTH 14.6 % (11.5-14.5)
[2024-02-15 08:16] LABS: RBC,URINE 0-2 /HPF (0-2); WBC,URINE TNTC /HPF (0-4)
[2024-02-15 08:17] LABS: BACTERIA,URINE 4+ /HPF (Neg); MUCUS STRANDS FEW /LPF (Neg); SQUAMOUS EPITHELIAL CELL,UR FEW /LPF (FEW); WBC CLUMPS,URINE FEW /HPF (NEGATIVE)
[2024-02-15 08:35] LABS: ALANINE AMINOTRANSFERASE 16 U/L (12-78); ALBUMIN 2.5 G/DL (3.4-5.0); ALBUMIN/GLOBULIN RATIO 0.5 (1.1-1.5); ALKALINE PHOSPHATASE 116 IU/L (46-116); ANION GAP 12 (8-16); ASPARTATE AMINO TRANSFERASE 14 U/L (10-37); BILIRUBIN,TOTAL 0.3 MG/DL (0.1-1.0); BLOOD UREA NITROGEN 64 MG/DL (7-18); BUN/CREATININE RATIO 17.3 (10.0-20.0); CALCIUM 8.2 MG/DL (8.5-10.1); CHLORIDE 111 MMOL/L (99-107); CREATININE 3.71 MG/DL (0.40-0.90); GLUCOSE 71 MG/DL (70-104); LIPASE 39 U/L (16-77); POTASSIUM 5.6 MMOL/L (3.5-5.1); SODIUM 140 MMOL/L (135-145); TOTAL CARBON DIOXIDE 17.2 MMOL/L (24-32); TOTAL PROTEIN 7.1 G/DL (6.4-8.2); eCRCL 15 ML/MIN; eGFR 12 ML/MIN
[2024-02-15] MEDS: normal saline 1000ml 1,000 ML IV ONE (12:07)
[2024-02-15] MEDS: CefTRIAXone 2gm/D5W 50ml BAG 50 ML IV ONE (12:07)
[2024-02-15] MEDS ORDERED: magnesium Cl slow-release 64mg tablet PO PRN (14:35)
[2024-02-15] MEDS ORDERED: magnesium sulf-water 2g/50mL 50 ML IV PRN (14:35)
[2024-02-15] MEDS ORDERED: potassium Cl 20 mEq SR tablet PO PRN ×2 (14:35)
[2024-02-15] MEDS ORDERED: acetaminophen 325mg tablet PO PRN (14:35)
[2024-02-15] MEDS ORDERED: potassium Cl 40MEQ/1/2NS 520ml 520 ML IV PRN (14:35)
[2024-02-15] MEDS ORDERED: ondansetron/PF 4mg/2ml inj IV PRN (14:35)
[2024-02-15] MEDS ORDERED: magnesium hydroxide 30ml (MOM) UD suspension PO PRN (14:35)
[2024-02-15] MEDS ORDERED: mag hydrox/Alum hydrox/simeth 30ml oral suspension PO PRN (14:35)
[2024-02-15] MEDS ORDERED: albuterol 2.5 MG/3 ML nebule NEB ONE (14:50)
[2024-02-15 15:20] LABS: HEMOGLOBIN A1C 5.4 % (4.5-6.2)
[2024-02-15] MEDS ORDERED: dextrose 50%-water 50ml dispensing syringe IV PRN ×2 (15:45)
[2024-02-15] MEDS: CefTRIAXone/D5W-Rocephin 1gm 50 ML IV SCH (15:45)
[2024-02-15] MEDS: normal saline 1000ml 1,000 ML IV SCH (15:45)
[2024-02-15] MEDS ORDERED: glucagon, human recombinant 1mg kit SUBCUT PRN (15:45)
[2024-02-15] MEDS ORDERED: DEXTROSE 15 GM of carb/4 tabs (each vial/BOTTLE has 4 tablets) PO PRN ×2 (15:45)
[2024-02-15 15:51] LABS: APTT 26 SECONDS (22-32); PROTHROMBIN TIME 10.9 SECONDS (9.0-12.0)
[2024-02-15] MEDS: hydrALAZINE 20mg/ml inj. IV ONE (15:55)
[2024-02-15] MEDS: sodium bicarbonate (8.4%) 1 mEq/ml syringe IV ONE (15:58)
[2024-02-15] MEDS: calcium chloride 100 MG/1 ML inj IV ONE (15:58)
[2024-02-15] MEDS: insulin regular, human 10 units/0.1 ml syringe IV ONE (15:58)
[2024-02-15] MEDS: sodium polystyrene sulfonate 15gm/60ml oral suspension PO ONE (15:59)
[2024-02-15] MEDS: dextrose 50%-water 50ml dispensing syringe IV ONE (16:04)
[2024-02-15] MEDS: sodium ferric gluc complex inj 125 MG in normal saline 100ml IV soln 100 ML IV SCH (16:49)
[2024-02-15] MEDS: dextrose 5%-1/2 normal saline 1,000 ML IV SCH (18:17)
[2024-02-15 19:20] VITALS: BP 138/61; PULSE 82; RESP 16; TEMP 97.6; O2SAT 97
[2024-02-15 20:00] VITALS: RESP 18; O2SAT 96
[2024-02-15] MEDS: docusate sod 100mg capsule PO SCH ×2 (20:00→20:32)
[2024-02-15] MEDS: heparin, porcine 5000 units/ml vial SQ SCH (20:00)
[2024-02-15] MEDS: polyethylene glycol 3350 17gm powd pack PO SCH (20:32)
[2024-02-15] MEDS: HYDROmorphone inj. 0.5 MG/0.5 ML DISP.SYRIN IV PRN (20:34)
[2024-02-15] MEDS: insulin glargine (Lantus) pen - multi-dose SQ SCH (20:58)
[2024-02-15] MEDS: SODIUM ZIRCONIUM CYCLOSILICATE 10 GM POWD.PACK PO SCH (22:30)
[2024-02-15 23:00] VITALS: BP 144/55; PULSE 77; RESP 16; TEMP 97.4; O2SAT 97
[2024-02-16] VITALS (11 sets, daily range): BP systolic 133–218; BP diastolic 53–98; PULSE 70–96; RESP 14–23; TEMP 97.5–98.7; O2SAT 94–99
[2024-02-16] MEDS ORDERED: albuterol 2.5 MG/3 ML nebule NEB PRN (06:15)
[2024-02-16] MEDS: losartan 50mg tablet PO ONE (06:43)
[2024-02-16] MEDS: gabapentin 300mg capsule PO SCH (09:16)
[2024-02-16] MEDS: atorvastatin 20mg tablet PO SCH (09:20)
[2024-02-16] MEDS: losartan 50mg tablet PO SCH (10:37)
[2024-02-16] MEDS ORDERED: HYDROmorphone inj. 0.5 MG/0.5 ML DISP.SYRIN IV PRN (11:45)
[2024-02-16 12:09] LABS: BASOPHILS % (AUTO) 0.8 % (0-1); EOSINOPHILS # (AUTO) 0.2 X10'3 (0-0.9); EOSINOPHILS % (AUTO) 4.4 % (0-6); HEMATOCRIT 30.1 % (35.0-45.0); HEMOGLOBIN 10.2 g/dl (12.0-16.0); LYMPHOCYTES % (AUTO) 20.1 % (21-51); MEAN CORPUSCULAR HEMOGLOBIN 30.3 PG (27.0-31.0); MEAN CORPUSCULAR HGB CONC 33.9 g/dL (33.0-36.5); MEAN CORPUSCULAR VOLUME 89.6 FL (78-98); MEAN PLATELET VOLUME 7.7 FL (7.4-10.4); MONOCYTES # (AUTO) 0.4 X10'3 (0-0.9); MONOCYTES % (AUTO) 8.9 % (2-12); NEUTROPHILS # (AUTO) 3.2 X10'3 (1.8-7.7); NEUTROPHILS % (AUTO) 65.8 % (42-75); PLATELET COUNT 136 X10'3 (140-440); RED BLOOD COUNT 3.36 X10'6 (4.20-5.60); RED CELL DISTRIBUTION WIDTH 14.5 % (11.5-14.5); WHITE BLOOD COUNT 4.8 X10'3 (4.5-11.0)
[2024-02-16] MEDS: baclofen 10mg tablet PO PRN (12:13)
[2024-02-16 12:30] LABS: ALANINE AMINOTRANSFERASE 15 U/L (12-78); ALBUMIN 2.3 G/DL (3.4-5.0); ALBUMIN/GLOBULIN RATIO 0.5 (1.1-1.5); ALKALINE PHOSPHATASE 111 IU/L (46-116); ANION GAP 9 (8-16); ASPARTATE AMINO TRANSFERASE 19 U/L (10-37); BILIRUBIN,TOTAL 0.2 MG/DL (0.1-1.0); BLOOD UREA NITROGEN 60 MG/DL (7-18); BUN/CREATININE RATIO 20.3 (10.0-20.0); CHLORIDE 109 MMOL/L (99-107); CHOL/HDL RATIO 4.3 (0.00-4.99); CHOLESTEROL 175 MG/DL (0-200); CREATININE 2.96 MG/DL (0.40-0.90); GLUCOSE 139 MG/DL (70-104); HDL CHOLESTEROL 41 MG/DL (35-60); LDL CHOLESTEROL 113 MG/DL (50-100); MAGNESIUM 1.6 MG/DL (1.5-2.4); POTASSIUM 5.3 MMOL/L (3.5-5.1); SODIUM 138 MMOL/L (135-145); TOTAL PROTEIN 7.1 G/DL (6.4-8.2); TRIGLYCERIDES 104 MG/DL (20-135); eCRCL 19 ML/MIN; eGFR 16 ML/MIN
[2024-02-16] MEDS: hydrALAZINE 20mg/ml inj. IV STA (17:41)
[2024-02-16] MEDS ORDERED: furosemide 20MG tablet PO SCH (21:00)
[2024-02-16 22:02] LABS: PRO BRAIN NATRIURETIC PEPTIDE 20112 PG/ML (0-125)
[2024-02-17] VITALS (13 sets, daily range): BP systolic 128–180; BP diastolic 44–60; PULSE 80–94; RESP 14–20; TEMP 97–98.1; O2SAT 95–99
[2024-02-17] MEDS: losartan 50mg tablet PO SCH (07:28)
[2024-02-17] MEDS ORDERED: azithromycin 250mg tablet PO SCH (08:00)
[2024-02-17] MEDS ORDERED: HYDROchlorothiazide 25mg tablet PO SCH (08:00)
[2024-02-17] MEDS ORDERED: SODIUM ZIRCONIUM CYCLOSILICATE 10 GM POWD.PACK PO SCH (08:00)
[2024-02-17] MEDS ORDERED: sodium polystyrene sulfonate 15gm/60ml oral suspension PO SCH (08:00)
[2024-02-17 08:46] LABS: BASOPHILS # (AUTO) 0.1 X10'3 (0-0.2); BASOPHILS % (AUTO) 1.2 % (0-1); EOSINOPHILS # (AUTO) 0.2 X10'3 (0-0.9); EOSINOPHILS % (AUTO) 4.8 % (0-6); HEMATOCRIT 29.1 % (35.0-45.0); HEMOGLOBIN 9.9 g/dl (12.0-16.0); LYMPHOCYTES % (AUTO) 21.8 % (21-51); MEAN CORPUSCULAR HEMOGLOBIN 30.6 PG (27.0-31.0); MEAN CORPUSCULAR HGB CONC 34.1 g/dL (33.0-36.5); MEAN CORPUSCULAR VOLUME 89.6 FL (78-98); MEAN PLATELET VOLUME 7.9 FL (7.4-10.4); MONOCYTES # (AUTO) 0.4 X10'3 (0-0.9); MONOCYTES % (AUTO) 8.5 % (2-12); NEUTROPHILS # (AUTO) 2.8 X10'3 (1.8-7.7); NEUTROPHILS % (AUTO) 63.7 % (42-75); PLATELET COUNT 138 X10'3 (140-440); RED BLOOD COUNT 3.25 X10'6 (4.20-5.60); RED CELL DISTRIBUTION WIDTH 14.6 % (11.5-14.5); WHITE BLOOD COUNT 4.4 X10'3 (4.5-11.0)
[2024-02-17 09:23] LABS: ALANINE AMINOTRANSFERASE 15 U/L (12-78); ALBUMIN 2.2 G/DL (3.4-5.0); ALBUMIN/GLOBULIN RATIO 0.5 (1.1-1.5); ALKALINE PHOSPHATASE 103 IU/L (46-116); ANION GAP 9 (8-16); BILIRUBIN,TOTAL 0.2 MG/DL (0.1-1.0); BLOOD UREA NITROGEN 57 MG/DL (7-18); BUN/CREATININE RATIO 21.1 (10.0-20.0); CALCIUM 8.2 MG/DL (8.5-10.1); CHLORIDE 112 MMOL/L (99-107); GLUCOSE 125 MG/DL (70-104); MAGNESIUM 1.7 MG/DL (1.5-2.4); POTASSIUM 4.7 MMOL/L (3.5-5.1); SODIUM 140 MMOL/L (135-145); TOTAL CARBON DIOXIDE 18.8 MMOL/L (24-32); TOTAL PROTEIN 6.9 G/DL (6.4-8.2); eCRCL 21 ML/MIN; eGFR 18 ML/MIN
[2024-02-17 09:38] LABS: ASPARTATE AMINO TRANSFERASE 13 U/L (10-37)
[2024-02-17] MEDS: hydrALAZINE 20mg/ml inj. IV PRN (11:04)
[2024-02-17] MEDS ORDERED: oxyCODONE/APAP 10/325mg tablet PO PRN ×2 (12:05)
[2024-02-17] MEDS: amLODIPine 5mg tablet PO SCH (13:03)
[2024-02-17] MEDS: gabapentin 300mg capsule PO SCH (21:10)
[2024-02-18 02:55] VITALS: BP 125/74; PULSE 83; RESP 20; O2SAT 98
[2024-02-18 04:59] LABS: BASOPHILS % (AUTO) 1.2 % (0-1); EOSINOPHILS # (AUTO) 0.2 X10'3 (0-0.9); EOSINOPHILS % (AUTO) 4.8 % (0-6); HEMATOCRIT 27.2 % (35.0-45.0); HEMOGLOBIN 9.2 g/dl (12.0-16.0); LYMPHOCYTES # (AUTO) 0.9 X10'3 (1.1-4.8); LYMPHOCYTES % (AUTO) 22.9 % (21-51); MEAN CORPUSCULAR HGB CONC 33.7 g/dL (33.0-36.5); MEAN PLATELET VOLUME 7.2 FL (7.4-10.4); MONOCYTES # (AUTO) 0.3 X10'3 (0-0.9); MONOCYTES % (AUTO) 7.9 % (2-12); NEUTROPHILS # (AUTO) 2.5 X10'3 (1.8-7.7); NEUTROPHILS % (AUTO) 63.2 % (42-75); PLATELET COUNT 125 X10'3 (140-440); RED BLOOD COUNT 3.05 X10'6 (4.20-5.60); RED CELL DISTRIBUTION WIDTH 14.7 % (11.5-14.5); WHITE BLOOD COUNT 3.9 X10'3 (4.5-11.0)
[2024-02-18 05:12] LABS: ALANINE AMINOTRANSFERASE 11 U/L (12-78); ALBUMIN 2.1 G/DL (3.4-5.0); ALBUMIN/GLOBULIN RATIO 0.5 (1.1-1.5); ALKALINE PHOSPHATASE 94 IU/L (46-116); ANION GAP 10 (8-16); ASPARTATE AMINO TRANSFERASE 10 U/L (10-37); BILIRUBIN,TOTAL 0.2 MG/DL (0.1-1.0); BLOOD UREA NITROGEN 48 MG/DL (7-18); BUN/CREATININE RATIO 18.6 (10.0-20.0); CALCIUM 8.1 MG/DL (8.5-10.1); CREATININE 2.58 MG/DL (0.40-0.90); GLUCOSE 123 MG/DL (70-104); MAGNESIUM 1.6 MG/DL (1.5-2.4); POTASSIUM 4.5 MMOL/L (3.5-5.1); SODIUM 140 MMOL/L (135-145); TOTAL PROTEIN 6.4 G/DL (6.4-8.2); eCRCL 22 ML/MIN; eGFR 19 ML/MIN
[2024-02-18 05:21] LABS: CHLORIDE 112 MMOL/L (99-107)
[2024-02-18 06:24] VITALS: BP 157/48; PULSE 72; RESP 15; TEMP 97.6; O2SAT 99
[2024-02-18 10:00] VITALS: BP 183/52; PULSE 72; RESP 18; TEMP 97.7; O2SAT 98
[2024-02-18] MEDS ORDERED: CIPR250T26 PO (10:56)
[2024-02-18] MEDS ORDERED: HYDR4TAB45 PO (10:58)
[2024-02-18] MEDS ORDERED: NOR5T PO (11:08)
[2024-02-18] MEDS ORDERED: LACT1CAP26 PO (11:09)
[2024-02-18] MEDS: ciprofloxacin 250mg tablet PO SCH (11:17)
== END 2024-02-18 14:00 | disposition home health service (06) | DRG 206 ==
LOC: ER 05:29 → ED HOLD 14:40 → UNDOADMIN 15:09 → ED HOLD 15:09 → SUR 3N 19:15 → ED HOLD 19:15
PROVIDERS: ADMIT Internal Medicine; ATTEND Internal Medicine
DX: M94.0 Chondrocostal junction syndrome [Tietze] (principal); N17.9 Acute kidney failure, unspecified; I13.0 Hypertensive heart and chronic kidney disease with heart failure and stage 1 through stage 4 chronic kidney disease, or unspecified chronic kidney disease; N39.0 Urinary tract infection, site not specified; Z16.24 Resistance to multiple antibiotics; N18.4 Chronic kidney disease, stage 4 (severe); J44.89 Other specified chronic obstructive pulmonary disease; E11.22 Type 2 diabetes mellitus with diabetic chronic kidney disease; I50.9 Heart failure, unspecified; E87.5 Hyperkalemia; D69.6 Thrombocytopenia, unspecified; G89.29 Other chronic pain; M54.9 Dorsalgia, unspecified; E11.51 Type 2 diabetes mellitus with diabetic peripheral angiopathy without gangrene; E78.00 Pure hypercholesterolemia, unspecified; Z88.2 Allergy status to sulfonamides; Z87.891 Personal history of nicotine dependence; Z89.512 Acquired absence of left leg below knee; Z89.611 Acquired absence of right leg above knee; Z88.0 Allergy status to penicillin; Z88.5 Allergy status to narcotic agent; Z79.82 Long term (current) use of aspirin; Z79.899 Other long term (current) drug therapy; Z90.49 Acquired absence of other specified parts of digestive tract; E86.0 Dehydration
CPT/HCPCS: 36415; 71045; 71250; 74176; 76770; 80053; 80061; 81001; 82948; 83036; 83690; 83735; 83880; 84145; 84484; 85025; 85610; 85730; 87077; 87081; 87088; 87186; 93306; 94760; 96365; 96375; 97161; 99285; A6212; A6213; G0378; J0360; J0696; J1171; J1644; J1815; J2916; J3490; J7030

== ENCOUNTER 2024-10-23 16:41 | Emergency (ER) | payer MEDICARE, MEDICAID ==
[~2024-10-23] VITALS: Ht 170.2 cm; Wt 86.2 kg
[~2024-10-23 16:41] MED LIST changes: -ASPI-1265 PO; +CIPR-207 PO; -CLOP-32 PO; -LOSA50TA64 PO; +NOR5T PO
--- NOTE | 2024-10-23 16:58 | ELECTROCARDIOGRAPH REPORT ---
[facility] Test Date: 2024-10-23 Test Time: 16:57:06 Pat Name: VAUGHN COKER Department: EMERGENCY ROOM Room: Gender: F Sales Representative Door To Door: : 1960 Requested By: BIBIANA GONZALEZ Order Number: [id number] Reading MD: Dr. Jeferson Galarza Measurements Intervals [place] Rate: 98 P: 75 SD: 167 QRS: -16 QRSD: 101 T: 109 QT: 375 QTc: 479 Interpretive Statements Sinus tachycardia Ventricular trigeminy Borderline left axis deviation Low voltage, precordial leads Abnormal R-wave progression, late transition Abnormal T, consider ischemia, lateral leads Baseline wander in lead(s) I,II,aVR,aVL,V3,V4,V5,V6 Electronically Signed On 10-23-2024 20:10:[address] Jeferson Galarza Please click the below link to view image of tracing.
[2024-10-23 17:20] LABS: MEAN PLATELET VOLUME 7.4 FL (7.4-10.4); RED CELL DISTRIBUTION WIDTH 13.2 % (11.5-14.5)
--- NOTE | 2024-10-23 17:20 | RADIOLOGY REPORT ---
EXAM: DI CHEST,SINGLE VIEW CLINICAL HISTORY: CP TECHNIQUE: Single AP view of the chest WID: COMPARISON: DI CHEST,SINGLE VIEW on DOS: 03/03/24 FINDINGS: Lines and tubes: Right IJ central venous catheter with the tip projecting over the upper right atrium . Chest: Mild cardiomegaly without pulmonary vascular congestion. Small left pleural effusion. No pneumothorax. The osseous structures are grossly intact. IMPRESSION: Mild cardiomegaly and small left pleural effusion.
[2024-10-23 17:39] LABS: CREATININE 1.95 MG/DL (0.40-0.90); TOTAL CARBON DIOXIDE 36.5 MMOL/L (24-32); eCRCL 29 ML/MIN; eGFR 26 ML/MIN
[2024-10-23 17:46] LABS: PRO BRAIN NATRIURETIC PEPTIDE 11010 PG/ML (0-125)
[2024-10-23 19:59] LABS: LEUKOCYTE ESTERASE ,URINE LARGE (Neg); NITRITES, URINE NEGATIVE (Neg); OCCULT BLOOD,URINE MODERATE (Neg)
--- NOTE | 2024-10-23 19:59 | Physician Documentation ---
History of Present Illness ~ Chief Complaint: Dizziness Stated Complaint: DIZZYNESS Time Seen by MD: 16:43 Primary Medical Doctor: Karl Donato MD Source: patient Mode of Arrival: EMS Exam Limitations: no limitations HPI Patient in by EMS after dialysis today. She reports that she just did not feel good and felt lightheaded. EMS reports she was having hallucinations. No hallucinations in the ED. Patient is alert and oriented x4. History of diabetes but recently on dialysis. She states it was from acute kidney injury. In reviewing her notes it looks like she did have acute kidney injury at a recent hospitalization with Lasix. History of right AKA and left BKA. One was dramatic and the other was vascular. She states she has been feeling a little bit weak and has a history of UTI. No cough, shortness of breath or chest pain. No belly pain. Medication Reconciliation Allergies: Coded Allergies: Sulfa (Sulfonamide Antibiotics) (Verified Allergy, Intermediate, UNKNOWN, 10/23/24) acetaminophen (Verified Allergy, Intermediate, UNKNOWN, 10/23/24) oxycodone (Verified Allergy, Intermediate, UNKNOWN, 10/23/24) PT TOLERATED HYDROMORPHONE Penicillins (Verified Allergy, Unknown, 10/23/24) TOLERATED CEFTRIAXONE IN THE PAST; 2023 hydrocodone (Verified Allergy, Unknown, 10/23/24) PT TOLERATED HYDROMORPHONE morphine (Verified Allergy, Unknown, 10/23/24) PT TOLERATED HYDROMORPHONE Uncoded Allergies: "MYCINS" (Allergy, Intermediate, UNKNOWN, 02/17/24) VOMITING AND WELTS/HIVES Scheduled Amlodipine Besylate (Amlodipine Besylate), 10 MG PO DAILY Atorvastatin Calcium (Atorvastatin Calcium), 40 MG PO DAILY Ciprofloxacin HCl (Ciprofloxacin HCl), 250 MG PO BIDQ Ciprofloxacin HCl (Ciprofloxacin HCl), 1 TAB PO BID Furosemide (Lasix), 40 MG PO TID Gabapentin (Gabapentin), 3 CAP PO Q8H, (Reported) Hydrochlorothiazide (Hydrochlorothiazide), 25 MG PO DAILY Scheduled PRN Acetaminophen With Codeine* (Tylenol #4*), 1 TAB PO Q8H PRN for pain, (Reported) Albuterol Sulfate (Proair Hfa), 2 PUFFS IH Q4H PRN for SOB or wheezing, (Reported) Past Medical History Past Medical History: Congestive Heart Failure, High Cholesterol, Hypertension, Asthma, COPD, Diabetes Past Surgical History: orthopedic surgeries Other Past Surgical History: Left BKA June 2019 Patient History: FH: cancer Paternal grandmother FH: heart disease FATHER Alcohol Use: None Drug Use: none Lives with: Alone Lives In: Home Review of Systems All Other Systems at this time: Reviewed and Negative Physical Exam Vital Signs: Temperature: 98.5, Source: Oral, Heart Rate: 87, Respiratory Rate: 16, BP: 155/34, Pulse Oximetry: 99, Weight: 86.180 Oxygen Flow Rate: 2.0 General Appearance: alert, WD/WN Neck: non-tender, full range of motion Head: normal Pupils/EOM/Fundus: PERRLA, EOM intact Respiratory: lungs clear, normal breath sounds, no respiratory distress Chest: no accessory muscle use Cardiovascular: regular rate, rhythm, no JVD, no murmur Gastrointestinal: normal palpation, non-tender Skin: warm/dry, normal color Orientation / Memory / CN: oriented x3, memory intact Motor / Sensory: no motor deficit, no sensory deficit Psych: appropriate Progress Progress Note Workup is consistent with UTI. Culture is pending. Starting her on Cipro given her allergies. Workup otherwise unremarkable including troponin, CBC and chemistry. BNP is elevated. No shortness of breath. No excessive need for oxygen above baseline. Discharging home in good condition. No sepsis or confusion. She is to follow up with PCP in the next week or return here if new or worsening symptoms. Results/Orders Results/Orders Orders - BIBIANA GONZALEZ MD Stat Ekg (10/23/24 ) Chest,Single View (10/23/24 16:54) Monitor (10/23/24 16:54) Saline Lock (10/23/24 16:54) Oxygen (10/23/24 16:54) Hs Troponin I W Calculations (10/23/24 19:54) Straight Cath For Urine Sample (10/23/24 17:46) Cult Urine + [address] (10/23/24 20:18) Completed Orders - BIBIANA GONZALEZ MD Stat Ekg (10/23/24 ) Chest,Single View (10/23/24 16:54) Cbc/Diff (10/23/24 16:54) PBNP (10/23/24 16:54) Hs Troponin I W Calculations (10/23/24 16:54) Hs Troponin I W Calculations (10/23/24 18:54) CMP (10/23/24 16:54) Ua W/Microscopic, Cult If Ind (10/23/24 19:23) Ciprofloxacin Tablet (Cipro Tablet) (10/23/24 20:15) Vital Signs 10/23/24 10/23/24 10/23/24 10/23/24 16:43 17:08 17:12 18:07 Temp 98.5 Pulse 99 91 Resp 18 12 B/P (MAP) 121/73 125/40 (68) Pulse Ox 93 94 100 O2 Delivery Nasal Cannula* O2 Flow Rate 3.0 3 0 FiO2 32 10/23/24 10/23/24 19:00 19:47 Pulse 87 Resp 18 16 B/P (MAP) 155/34 (74) Pulse Ox 99 O2 Flow Rate 2.0 Laboratory Tests Test 10/23/24 17:11 10/23/24 19:23 10/23/24 19:29 10/23/24 19:58 White Blood Count 6.7 Red Blood Count 3.32 L Hemoglobin 9.5 L Hematocrit 29.1 L Mean Corpuscular Volume 87.6 Mean Corpuscular Hemoglobin 28.7 Mean Corpuscular Hemoglobin Concent 32.7 L Red Cell Distribution Width 13.2 Platelet Count 164 Mean Platelet Volume 7.4 Neutrophils (%) (Auto) 71.6 Lymphocytes (%) (Auto) 17.4 L Monocytes (%) (Auto) 8.8 Eosinophils (%) (Auto) 1.0 Basophils (%) (Auto) 1.2 H Neutrophils # (Auto) 4.8 Lymphocytes # (Auto) 1.2 Monocytes # (Auto) 0.6 Eosinophils # (Auto) 0.1 Basophils # (Auto) 0.1 CBC Comment Sodium Level 138 Potassium Level 4.0 Chloride Level 100 Carbon Dioxide Level 36.5 H Anion Gap 2 L Blood Urea Nitrogen 11 Creatinine 1.95 H Estimated GFR/1.73 m2 26 BUN/Creatinine Ratio 5.6 L Glucose Level 99 Calcium Level 8.3 L Total Bilirubin 0.4 Aspartate Amino Transf (AST/SGOT) 19 Alanine Aminotransferase (ALT/SGPT) 37 Alkaline Phosphatase 184 H Troponin I High Sensitivity 23 23 Pro-B-Type Natriuretic Peptide 18264 H Total Protein 7.3 Albumin 2.3 L Globulin 5.0 H Albumin/Globulin Ratio 0.5 L Chemistry Comments Urine Specimen Description Non-specified Urine Color Yellow Urine Clarity Cloudy Urine pH 7.5 Urine Specific [place] 1.020 Urine Protein >=300 H Urine Glucose (UA) Negative Urine Ketones Negative Urine Occult Blood Moderate H Urine Nitrite Negative Urine Bilirubin Negative Urine Urobilinogen 0.2 Urine Leukocyte Esterase Large H Urine RBC 10-20 Urine WBC Tntc H Urine Squamous Epithelial Cells None seen Urine Bacteria Few Urine Mucus Few Urine Culture Indicated Indicated Volume Urine Centrifuged 10 ml Urine Comment Troponin I High Sens Percent Delta 0 Troponin I Hi Sens Absolute Change 0 Departure Disposition: 01 HOME / SELF CARE / HOMELESS Impression: Primary Impression: UTI (urinary tract infection) Qualified Codes: N30.00 - Acute cystitis without hematuria Condition: Stable Discharge Instructions: Urinary Tract Infection, Adult, [id number] Additional Instructions: Follow-up with your doctor in the next week. Return here if new or worsening symptoms. Referrals: NO PRIMARY CARE PROVIDER (PCP) Prescriptions Ciprofloxacin HCl (Ciprofloxacin HCl) 500 Mg Tab 1 TAB PO BID for 5 Days, #10 TAB Prov: BIBIANA GONZALEZ MD 10/23/24 Signature Scribe Signature: No scribe used Attestation: No scribe used BIBIANA GONZALEZ MD Oct 23, 2024 19:59
[2024-10-23 20:06] LABS: UA COLLECTION TYPE NON-SPECIFIED
[2024-10-23 20:17] LABS: SQUAMOUS EPITHELIAL CELL,UR NONE SEEN /LPF (FEW)
[2024-10-23 20:18] LABS: MUCUS STRANDS FEW /LPF (Neg)
[2024-10-23] MEDS ORDERED: CIPR-458 PO (20:20)
[2024-10-23] MEDS: ciprofloxacin 250mg tablet PO ONE (20:31)
[2024-10-23 22:58] VITALS: BP 148/80; PULSE 70; RESP 18; TEMP 97.8; O2SAT 99
== END 2024-10-23 23:05 | disposition home or self-care (01) ==
LOC: ER 16:42
DX: N39.0 Urinary tract infection, site not specified (principal); R42 Dizziness and giddiness; R53.1 Weakness; E11.9 Type 2 diabetes mellitus without complications; I11.0 Hypertensive heart disease with heart failure; I50.9 Heart failure, unspecified; J44.89 Other specified chronic obstructive pulmonary disease; E78.00 Pure hypercholesterolemia, unspecified; Z87.440 Personal history of urinary (tract) infections; Z88.0 Allergy status to penicillin; Z88.2 Allergy status to sulfonamides; Z88.5 Allergy status to narcotic agent; Z88.8 Allergy status to other drugs, medicaments and biological substances
CPT/HCPCS: 36415; 71045; 80053; 81001; 83880; 84484; 85025; 87088; 93005; 99285; C1758